=== PATIENT | male | born 2000 | race Caucasian/White ===

== ENCOUNTER 2022-11-17 00:18 | Emergency (ER) | payer BC, SELFPAY ==
[2022-11-17] VITALS (7 sets, daily range): BP systolic 127–132; BP diastolic 65–66; PULSE 76–88; RESP 18; TEMP 36.7; O2SAT 99–100; BMI 27.1
--- NOTE | 2022-11-17 00:36 | ED_ITS ---
HPI - Nausea/Vomiting/Diarrhea General Time Seen by Provider: 00:37 Date Seen: 11/17/22 Chief complaint: Nausea/Vomiting Stated complaint: Vomiting Time Seen by Provider: 11/17/22 00:36 Source: patient, RN notes reviewed and old records reviewed Mode of arrival: ambulatory Limitations: no limitations History of Present Illness HPI Narrative: 22-year-old male who comes in with headache, nausea, vomiting starting about 5 hours ago. Denies abdominal pain, chest pain, diarrhea, fevers, or chills. Says he has a headache but then says it feels like he is more lightheaded. Denies head pain, neck pain, or injury. Has not taken anything for his symptoms. Requesting water. Related Data Home Medications Medication Instructions Recorded Confirmed bupropion HCl 100 mg tablet 150 mg PO DAILY 11/17/22 11/17/22 Allergies Allergy/AdvReac Type Severity Reaction Status Date / Time amoxicillin Allergy Mild Hives Verified 11/17/22 00:27 Review of Systems Status of ROS: Reports: 10 or more systems reviewed and unremarkable except as noted in History and below PFSH PFS Social History Smoking Status: Never smoker Do you use any of these nicotine containing products: None Second hand tobacco smoke exposure: No How often do you have a drink containing alcohol: monthly or less AUDIT-C Alcohol total score: 1 Non-prescribed substance use: denies use Exam Narrative: Exam Narrative: General: Well-developed and well-nourished, no acute distress Head: Atraumatic and normocephalic Eyes: Pupils are equal reactive, extraocular motions intact, conjunctiva clear ENT: External nose and ears are normal, posterior pharynx without erythema or exudate Neck: No midline cervical tenderness, full spontaneous range of motion the neck, trachea midline, no adenopathy Heart: Regular rate and rhythm no murmurs or thrills Lungs: Clear to auscultation bilaterally without wheezes or crackles Abdomen: Soft, nontender, nondistended with active bowel sounds Musculoskeletal: No tenderness, deformity, or edema Neurologic: Awake, alert, and oriented x3, no gross focal neurologic deficits, cranial nerves intact as tested Psych: Mood and affect are appropriate Skin: No rashes Const: Vital Signs, click to edit/add: Vital Signs - 24 hr 11/17/22 00:22 11/17/22 00:30 11/17/22 01:11 Temperature 98.0 F Pulse Rate 88 77 Pulse Rate [Pulse Oximeter] 76 Respiratory Rate 18 18 Blood Pressure 127/66 Blood Pressure [Ri ght Upper Arm] 132/65 Pulse Oximetry 100 99 100 Oxygen Delivery Me thod Room Air Room Air Room Air 11/17/22 01:15 11/17/22 01:31 Temperature Pulse Rate 76 79 Pulse Rate [Pulse Oximeter] Respiratory Rate Blood Pressure Blood Pressure [Ri ght Upper Arm] Pulse Oximetry 99 100 Oxygen Delivery Me thod Room Air Course Course ED Course: Patient seen and examined, prior records reviewed. Patient presents with nausea and vomiting this evening. No abdominal pain or diarrhea. No fevers. On exam, well-appearing vital is stable, says he is feeling little better is asking for water. He says his head feels funny, lightheaded more than pain and denies head injury. Labs ordered along with Zofran and fluids. Abdominal exam without tenderness, guarding, or rebound and so will defer CT scan of the abdomen and pelvis are now. Reevaluation(s) Time of Reevaluation #1: 01:38 Reevaluation #1: Labs independently interpreted by me with normal basic panel, normal nonfasting glucose. AST and ALT are both slightly elevated may be related to gastrointestinal or alcohol use. Patient is tolerating oral intake in the emerg ency department and is stable for discharge. Vital Signs Vital signs: Initial Vital Signs Temperature 98.0 F 11/17/22 00:22 Temperature Source Temporal Artery Scan 11/17/22 00:22 Pulse Rate 76 11/17/22 00:22 Respiratory Rate 18 11/17/22 00:22 Blood Pressure 132/65 11/17/22 00:22 Blood Pressure Mean 87 11/17/22 00:22 Blood Pressure Position Supine 11/17/22 00:22 Pulse Oximetry 100 11/17/22 00:22 Oxygen Delivery Method Room Air 11/17/22 00:22 Vital Signs Temperature 98.0 F 11/17/22 00:22 Pulse Rate 76 11/17/22 00:22 Respiratory Rate 18 11/17/22 00:22 Blood Pressure 132/65 11/17/22 00:22 Pulse Oximetry 100 11/17/22 00:22 Oxygen Delivery Method Room Air 11/17/22 00:22 Temperature 98.0 F 11/17/22 00:22 Pulse Rate 79 09/22/23 01:31 Respiratory Rate 18 11/17/22 00:30 Blood Pressure 127/66 11/17/22 00:30 Pulse Oximetry 100 11/17/22 01:31 Oxygen Delivery Method Room Air 11/17/22 01:31 MDM - Nausea/Vomiting/Diarrhea Lab Data Labs: Lab Results 11/17/22 Range/Units 00:50 Sodium 139 (135-149) mmol/L Potassium 4.6 (3.6-5.1) mmol/L Chloride 105 (96-114) mmol/L Carbon Dioxide 25 (20-32) mmol/L Anion Gap 9 (7-15) mEq/L BUN 25 H (5-24) mg/dL Creatinine 0.9 (0.5-1.5) mg/dL Estimated Creat Clear 124.56 Estimated GFR 124 ml/min Glucose 121 H (60-115) mg/dL Calcium 9.6 (8.4-10.6) mg/dL Magnesium 1.8 (1.5-2.6) mg/dL Total Bilirubin 1.2 (0.1-1.5) mg/dL Direct Bilirubin 0.0 (0.0-0.5) mg/dL AST 57 H (12-35) U/L ALT 52 H (4-50) U/L Alkaline Phosphatase 102 (40-150) U/L Total Protein 7.5 (6.0-8.3) g/dL Albumin 4.7 (3.3-5.0) g/dL Lipase 73 (23-300) U/L Discharge Plan Discharge Clinical Impression: Nausea & vomiting Patient Disposition: Home, Self-Care Condition: Stable Instructions: Acute Nausea and Vomiting (DC) Additional Instructions: Liquid diet for 24 hours and then advance as tolerated Take Zofran as needed for nausea vomiting Activity Level: Activity as Tolerated Prescriptions: No Action bupropion HCl 100 mg tablet 150 mg PO DAILY Stand Alone Forms: [employer] Info Instructions
[2022-11-17] MEDS: ONDANSETRON 2 MG/ML inj 4 MG IVP (00:50)
[2022-11-17] MEDS: 0.9 % SODIUM CHLORIDE 1000 ml 1,000 ML 6000 ML IV (01:04)
[2022-11-17] MEDS: FAMOTIDINE 10 MG/ML inj 20 MG IVP (01:04)
[2022-11-17 01:12] LABS: Albumin* 4.7 g/dL (3.3-5.0)
[2022-11-17 01:13] LABS: Chloride* 105 mmol/L (96-114); Potassium* 4.6 mmol/L (3.6-5.1); Sodium* 139 mmol/L (135-149)
[2022-11-17 01:15] LABS: Anion Gap 9 mEq/L (7-15); Aspartate Amino Transferase* 57 U/L (12-35); Bilirubin Total* 1.2 mg/dL (0.1-1.5); Carbon Dioxide* 25 mmol/L (20-32); Creatinine* 0.9 mg/dL (0.5-1.5); Est. Creatinine Clearance* 124.56; Estimated Glomerular Filt Rate 124 ml/min; Total Protein* 7.5 g/dL (6.0-8.3)
[2022-11-17 01:16] LABS: Alanine Aminotransferase* 52 U/L (4-50); Alkaline Phosphatase* 102 U/L (40-150); Blood Urea Nitrogen* 25 mg/dL (5-24); Calcium* 9.6 mg/dL (8.4-10.6); Glucose* 121 mg/dL (60-115); Lipase* 73 U/L (23-300); Magnesium* 1.8 mg/dL (1.5-2.6)
== END 2022-11-17 02:12 | disposition home or self-care (01) ==
LOC: ED 01:57
PROVIDERS: Emergency Provider Family Medicine
DX: R11.2 Nausea with vomiting, unspecified (principal)
CPT/HCPCS: 36415; 80048; 80076; 83690; 83735; 96361; 96374; 96375; 99284; J2405; J7030; S0028